=== PATIENT | female | born 1975 | race African-American/Black ===

== ENCOUNTER 2019-07-02 19:16 | Emergency (ER) | payer OTHER ==
[~2019-07-02] VITALS: Ht 167.6 cm; Wt 79.8 kg
[2019-07-02] MEDS ORDERED: ASPIR 8181 M1 PO (19:45)
[2019-07-02] MEDS ORDERED: MECLIZINE HCL25 M1 PO (19:45)
[2019-07-02] MEDS ORDERED: IRON160 M1 PO (19:46)
[2019-07-02 20:43] LABS: ABSOLUTE NEUTROPHILS 2.4 thou/uL (1.4-8.2); BASOPHILS 0.5 % (0.0-2.0); EOSINOPHILS 0.6 % (0.0-3.0); HEMATOCRIT 35.2 % (37.0-47.0); HEMOGLOBIN 11.7 gm/dL (12.0-15.0); LYMPHOCYTES 38.1 % (24.0-44.0); MCH 30.7 pg (26.0-34.0); MCHC 33.2 g/dL (28.0-37.0); MCV 92.6 fL (80.0-100.0); MONOCYTES 7.4 % (1.0-8.0); PLATELET COUNT 231 thou/uL (150-400); POLYS 53.4 % (36.0-66.0); RDW 13.6 % (10.5-14.5); WBC 4.5 thou/uL (4.0-11.0)
[2019-07-02 20:52] LABS: ANION GAP 11 mmol/L (7-16); BUN 9 mg/dL (7-18); CALCIUM 8.8 mg/dL (8.5-10.1); CHLORIDE 104 mmol/L (98-107); CO2 24 mmol/L (21-32); GLUCOSE 88 mg/dL (74-106); POTASSIUM 3.2 mmol/L (3.5-5.1); SODIUM 139 mmol/L (136-145)
[2019-07-02 21:01] LABS: ALBUMIN 4.1 g/dL (3.4-5.0); SGOT 15 U/L (15-37); SGPT 19 U/L (30-65); TOTAL BILIRUBIN 0.2 mg/dL (<0.1-1.0); TROPONIN-I <0.06 ng/mL (<0.06)
[2019-07-02 21:18] VITALS: BP 119/69
--- NOTE | 2019-07-03 08:15 | EKG ---
[facility] [place] [address] ELECTROCARDIOGRAM REPORT Name: STACI STRINGER Room #: DEP [facility]#: [id number] Admission: 07/02/19 Attend Phys: Discharge: 07/02/19 Date of : 79 Report #: [id number] THIS REPORT FOR: cc: MTAT - No family physician/PCP FAM - No family physician/PCP Marco Guillen MD [facility] THIS REPORT FOR: //name// [facility] ED Test Date: 2019-07-02 Test Time: 19:30:58 Pat Name: STACI STRINGER Department: Room: Gender: F Service Clerk: [facility] : 1975 Requested By: Juan Carlos Torres Order Number: [id number] MD: Marco Guillen Measurements Intervals [place] Rate: 85 P: 68 [place]: 147 QRS: 47 QRSD: 85 T: 14 QT: 355 QTc: 422 Interpretive Statements Sinus rhythm No significant abnormality No previous ECG available for comparison Electronically Signed On 07-03-2019 7:45:27 CDT by Marco Guillen [email or web address] <ELECTRONICALLY SIGNED> By: Marco Guillen MD, [facility] 07/03/19 0745 29 29 Marco Guillen MD, FACC /EPI
== END 2019-07-02 21:29 | disposition home or self-care (01) ==
LOC: ER 19:16
PROVIDERS: Emergency Medicine
DX: R07.89 Other chest pain (principal); Z79.899 Other long term (current) drug therapy; Z79.82 Long term (current) use of aspirin